=== PATIENT | female | born 2000 | race African-American/Black ===

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

== ENCOUNTER 2021-03-25 12:51 | Emergency (ER) | payer OTHER, MEDICAID ==
[~2021-03-25] VITALS: Ht 167.6 cm; Wt 50.0 kg
[2021-03-25 13:11] VITALS: BP 126/75
== END 2021-03-25 13:10 | disposition left against medical advice (07) ==
LOC: ER 12:51
DX: Z34.90 Encounter for supervision of normal pregnancy, unspecified, unspecified trimester (principal)
CPT/HCPCS: 99281

== ENCOUNTER 2022-12-04 13:21 | Emergency (ER) | payer OTHER, MEDICAID ==
[~2022-12-04] VITALS: Ht 167.6 cm; Wt 49.0 kg
[2022-12-04 13:24] VITALS: BP 110/68; PULSE 88; RESP 16; TEMP 97.8; O2SAT 98
[2022-12-04] MEDS ORDERED: MAGNESIUM/ALUMINUM HYDROXIDE/SIMETHICONE 30ML UDC PO STA (15:27)
[2022-12-04] MEDS ORDERED: ONDANSETRON HCL 4MG/2ML INJ IV STA (15:27)
[2022-12-04] MEDS ORDERED: KETOROLAC 30MG/ML VIAL IV STA (15:27)
[2022-12-04] MEDS ORDERED: FAMOTIDINE 20MG/2ML VIAL IV STA (15:27)
[2022-12-04] MEDS ORDERED: SODIUM CHLORIDE 0.9% 1,000 ML IV ONE (15:30)
[2022-12-04 16:38] LABS: HEMATOCRIT. 40.2 % (36.0-48.0); HEMOGLOBIN. 12.9 g/dL (12.0-16.0); MEAN CORPUSCULAR HGB CONC 32.1 g/dL (31.0-37.0); MEAN CORPUSCULAR VOLUME 87.2 fL (81.0-99.0); MEAN PLATELET VOLUME 9.1 fl (7.4-10.4); PLATELET 300 x1000/uL (130-400); RED BLOOD CELL COUNT 4.61 mill/uL (4.2-5.4); RED CELL DISTRIBUTION WIDTH 16.4 % (11.6-14.6); WHITE BLOOD COUNT 8.8 x1000/uL (4.5-11.0)
[2022-12-04 16:53] LABS: CHLORIDE 110 mEq/L (98-107); INDEX HEMOLYSI 2 (1-3); INDEX ICTERIC 1 (1-4); INDEX LIPEMIC 1 (1-3); POTASSIUM 3.2 mEq/L (3.5-5.1); SODIUM 141 mEq/L (136-145)
[2022-12-04 17:03] LABS: ALANINE AMINOTRANSFERASE 21 IU/L (13-61); ALBUMIN 3.9 g/dL (3.4-5.0); ASPARTATE AMINOTRANSFERASE 22 IU/L (15-37); BILIRUBIN TOTAL 0.5 mg/dL (0.1-1.0); CALCIUM 9.5 mg/dL (8.5-10.1); CARBON DIOXIDE 22 mEq/L (21-32); CREATININE 0.5 mg/dL (0.6-1.3); GLUCOSE 117 mg/dL (70-105); PROTEIN TOTAL 8.5 g/dL (6.0-8.3); UREA NITROGEN BLOOD 9 mg/dL (7-21)
[2022-12-04 17:11] LABS: DIFFERENTIAL COMMENT 1
[2022-12-04] MEDS ORDERED: FAMOTIDINE 20MG/2ML VIAL IV NR (17:15)
[2022-12-04] MEDS ORDERED: MAGNESIUM/ALUMINUM HYDROXIDE/SIMETHICONE 30ML UDC PO NR ×2 (17:15→17:30)
[2022-12-04] MEDS ORDERED: KETOROLAC 30MG/ML VIAL IV NR (17:15)
[2022-12-04] MEDS ORDERED: ONDANSETRON HCL 4MG/2ML INJ IV NR (17:15)
[2022-12-04 17:24] LABS: HCG SCREEN NEGATIVE
[2022-12-04] MEDS ORDERED: POTASSIUM CHLORIDE 20MEQ TABLET SR PO ONE (17:30)
[2022-12-04 17:38] LABS: PLATELET ESTIMATE NORMAL
[2022-12-04] MEDS ORDERED: CIPR-263 MT (18:12)
[2022-12-04] MEDS ORDERED: ONDA4TAB11 PO (18:12)
[2022-12-04] MEDS ORDERED: POTASSIUM CHLORIDE 20MEQ TABLET SR PO NR (19:45)
== END 2022-12-04 20:19 | disposition home or self-care (01) ==
LOC: ER 13:21
DX: R19.7 Diarrhea, unspecified (principal); R11.2 Nausea with vomiting, unspecified; E87.6 Hypokalemia; F19.90 Other psychoactive substance use, unspecified, uncomplicated
CPT/HCPCS: 80053; 84703; 83690; 85025; 36415; 96361; 96374; 96375; 99284; J1885; J2405; J7030; Z7610 ×3